=== PATIENT | male | born 1990 | race Caucasian/White ===

== ENCOUNTER 2022-08-05 09:17 | Emergency (ER) | payer OTHER ==
[~2022-08-05] VITALS: Ht 170.2 cm; Wt 71.7 kg
[2022-08-05 09:27] VITALS: BP 152/98
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
--- NOTE | 2022-08-05 09:56 | NUR ---
PT TAKEN TO XRAY VIA WHEELCHAIR
--- NOTE | 2022-08-05 10:05 | NUR ---
PT BROUGHT BACK VIA WHEELCHAIR
[2022-08-05] MEDS ORDERED: IBUPROFEN 600 MG TAB PO ONE (10:45)
[2022-08-05] MEDS ORDERED: ACETAMINOPHEN EXTRA STRENGTH 500 MG TAB PO ONE (10:45)
[2022-08-05] MEDS ORDERED: IBUP-2213 PO (11:10)
[2022-08-05] MEDS ORDERED: ACET-10509 PO (11:10)
[2022-08-05 11:23] VITALS: BP 155/102
--- NOTE | 2022-08-05 11:24 | NUR ---
Patient discharged with v/s stable. Written and verbal after care instructions ABOUT CLAVICLE FRACTURE given and explained. Patient alert, oriented and verbalized understanding of instructions. Ambulatory with steady gait. All questions addressed prior to discharge. ID band removed. Patient advised to follow up with PMD. Rx of MOTRIN, TYLENOL given. Patient educated on indication of medication including possible reaction and side effects. Opportunity to ask questions provided and answered.
== END 2022-08-05 11:24 | disposition home or self-care (01) ==
LOC: MED 09:17
DX: S42.012A Anterior displaced fracture of sternal end of left clavicle, initial encounter for closed fracture (principal); Z79.899 Other long term (current) drug therapy; V00.131A Fall from skateboard, initial encounter; Y93.I9 Activity, other involving external motion; Y92.89 Other specified places as the place of occurrence of the external cause; Y99.8 Other external cause status
CPT/HCPCS: 73000; 73030; 99284

== ENCOUNTER 2024-01-29 09:02 | Emergency (ER) | payer OTHER ==
[~2024-01-29] VITALS: Ht 170.2 cm; Wt 63.6 kg
[~2024-01-29 09:02] MED LIST: ACET-10509 PO; IBUP-2213 PO
[2024-01-29 09:04] VITALS: BP 160/108; PULSE 100; RESP 18; TEMP 98; O2SAT 100
[2024-01-29] MEDS ORDERED: GABA100C PO (09:33)
[2024-01-29 09:37] VITALS: BP 160/108; PULSE 100; RESP 18; TEMP 98; O2SAT 100
== END 2024-01-29 09:37 | disposition home or self-care (01) ==
LOC: MED 09:02
DX: G62.9 Polyneuropathy, unspecified (principal); Z79.899 Other long term (current) drug therapy
CPT/HCPCS: 99283